=== PATIENT | female | born 1980 | race Caucasian/White ===

== ENCOUNTER 2017-03-27 04:37 | Emergency (ER) | payer OTHER ==
--- NOTE | ~2017-03-27 | CT2 ---
[facility] A Service of [facility] RADIOLOGY TEXT RESULTS PATIENT: MICHAEL MATUTE LOCATION: SED : 84 UNIT #: [id number] AGE: [address]: Viotr Bender MD SEX: F ORDER DR: [id number] [place] [id number] E MR#: [id number] Acc #: [id number] NAME: MICHAEL MATUTE : 1980 SEX: F STUDY DATE/TIME: 03/27/2017 5:43 UNIT: SED ROOM: STUDY DESCRIPTION: CT Abd and Pelv W Cont Attending Physician: Vitor Bender M.D. Ordering Physician: Arthur Dorantes M.D. MEDICAL IMAGING REPORT This report is preliminary unless electronic signature is present. EXAM CT abdomen and pelvis INDICATION Right-sided abdominal pain and vomiting for [address]. [address] abdomen and pelvis with p.o. and IV contrast. Coronal and sagittal reconstructions were obtained. This CT exam was performed with one or more of the following radiation dose reduction techniques: automatic exposure control, adjustment of mA and/or kV according to patient size, and iterative reconstruction. COMPARISON None available. FINDINGS ABDOMEN: There is acute appendicitis. The appendix is dilated measuring up to 1.2 cm. There is a calcified phlebolith at the base of the appendix. Minimal periappendiceal inflammation is present. No periappendiceal fluid collections. Please note that the appendix is retrocecal. Please note the cecum is in the right upper quadrant just below the inferior tip of the right hepatic lobe. The small bowel is not dilated. The solid abdominal organs enhance normally. There is incidental note of a new left renal collecting system. The abdominal aorta is normal in caliber. There is a small umbilical hernia containing omental fat only. PELVIS: The bladder is unremarkable. Uterus and ovaries are within normal limits. No enlarged pelvic or inguinal lymph nodes. [facility] A Service of [facility] RADIOLOGY TEXT RESULTS PATIENT: MICHAEL MATUTE LOCATION: SED : 84 UNIT #: [id number] AGE: [address]: Vitor Bender MD SEX: F ORDER DR: No acute osseous abnormalities. IMPRESSION 1. Acute appendicitis. Please note that the appendix is retrocecal in location and the cecum is positioned in the right upper quadrant just below the inferior tip of the right hepatic lobe. 2. No complicating features such as abscess or perforation. Dictated by... Spenser Gomez M.D. THIS IS AN ELECTRONICALLY VERIFIED REPORT Spenser Gomez M.D. at 03/27/2017 2:22 PM ROBERT/tana TD: 03/27/2017 10:52 JOB #: [id number] MEDICAL IMAGING REPORT Page 1 of 1
[2017-03-27 05:12] LABS: BASOPHIL# 0.1 X10e3 (0-0.3); BASOPHIL% 0.6 % (0-2.5); HEMATOCRIT 38.4 % (35.0-45.0); HEMOGLOBIN 12.9 gm/dL (12.0-16.0); LYMPHOCYTE# 0.4 X10e3 (1.0-3.5); LYMPHOCYTE% 2.8 % (17.0-45.0); MEAN CELL VOLUME 82.7 FL (83-96); MEAN CORPUSCULAR HEMOGLOBIN 27.7 PG (28-34); MEAN CORPUSCULAR HGB CONC 33.5 g/dL (30-36); MEAN PLATELET VOLUME 8.4 FL (6.5-11.5); MONOCYTE# 0.7 X10e3 (0-1.0); MONOCYTE% 4.2 % (3.0-12.0); NEUTROPHIL# 14.6 X10e3 (1.5-7.1); NEUTROPHIL% 92.4 % (40-75); PLATELET COUNT 267 X10e3 (140-420); RED BLOOD COUNT 4.64 X10e (3.90-5.30); RED CELL DISTRIBUTION WIDTH 13.4 % (11.0-15.5); WHITE BLOOD COUNT 15.8 X10e3 (4.0-10.5)
[2017-03-27 05:14] LABS: DIFF IND NO
[2017-03-27 05:20] LABS: MICRO INDICATED? YES; URINE APPEARANCE HAZY; URINE BILIRUBIN NEG (NEG); URINE BLOOD TRACE-LYSED (NEG); URINE COLOR YELLOW; URINE GLUCOSE 50 MG/DL (NORM); URINE KETONE TRACE (NEG); URINE LEUKOCYTE ESTERASE TRACE (NEG); URINE NITRATE NEG (NEG); URINE PROTEIN NEG (NEG); URINE SOURCE CLEAN CATCH; URINE SPECIFIC GRAVITY >=1.030 (1.003-1.035); URINE UROBILINOGEN 0.2 MG/DL (NORM)
[2017-03-27 05:21] LABS: CULTURE INDICATED? YES; URINE BACTERIA 1+ (NEG); URINE MUCUS PRESENT; URINE SQUAMOUS EPITHELIAL CELL MANY /[HPF]
[2017-03-27 05:31] LABS: ALBUMIN SERUM 4.7 g/dL (3.5-5.0); BILIRUBIN, DIRECT 0.1 mg/dL (0.0-0.2); BILIRUBIN,INDIRECT 0.8 mg/dL (0.0-0.9); BILIRUBIN,TOTAL 0.9 mg/dL (0.2-2.0); CALCIUM SERUM 8.7 mg/dL (8.4-10.2); CREATININE SERUM 0.6 mg/dL (0.6-1.4); GLOM FILT RATE Estimated 118.9 mL/min (>60); POTASSIUM 3.4 mmol/L (3.5-5.1); PROTEIN TOTAL SERUM 7.7 g/dL (6.0-8.3)
== END 2017-03-27 08:14 | disposition hospice, home (50) ==
LOC: SED 04:37
PROVIDERS: Emergency Medicine
DX: K35.80 Unspecified acute appendicitis (principal); Z88.0 Allergy status to penicillin
CPT/HCPCS: 36415; 74177; 80048; 80076; 81003; 82150; 83690; 84703; 85025; 87086; 96361; 96374; 96375; 99285; J1170; J2405; Q9967